=== PATIENT | female | born 1970 | race Caucasian/White ===

== ENCOUNTER 2022-05-31 19:50 | Emergency (ER) | payer OTHER, SELFPAY ==
[2022-05-31 20:05] VITALS: BP 160/86; PULSE 105; RESP 18; TEMP 36.3; O2SAT 99
--- NOTE | 2022-05-31 21:21 | ED.FEMALEGU ---
HPI - Female Genitourinary General Stated complaint: Possible UTI Time Seen by Provider: 05/31/22 21:11 Source: patient Mode of arrival: ambulatory Limitations: no limitations History of Present Illness HPI Narrative: Patient presents today complaining of possible UTI. Reports dysuria for several days, but states it had resolved a few days ago. She also reports some redness to her groin and some malodorous vaginal discharge x2 weeks. Denies concerns for STIs, but would like tested for them with her urine sample. Related Data Allergies Allergy/AdvReac Type Severity Reaction Status Date / Time No Known Allergies Allergy Verified 05/31/22 20:16 Review of Systems Review of Systems: CONSTITUTIONAL: Denies body aches, fever, chills, or sweats. EYES: Denies visual changes, redness, or discharge. ENT: Denies rhinorrhea, congestion, sore throat, or otalgia. CARDIOVASCULAR: Denies chest pain, palpitations, or edema. RESPIRATORY: Denies cough or dyspnea. GASTROINTESTINAL: Denies abdominal pain, nausea, vomiting, or diarrhea. GENITOURINARY: + Malodorous vaginal discharge, groin redness SKIN: Denies rash, itching, or wounds. MUSCULOSKELETAL: Denies back pain, joint pain, or myalgia. NEUROLOGIC: Denies headache, numbness, tingling, or weakness. PSYCH: Denies depression or anxiety. PMFSH Comments At time of signature, I have reviewed and agree with nursing past medical, surgical, social and family history unless otherwise noted. Please see nursing chart for further information. There is no relevant family history pertinent to the presenting complaint Exam Narrative: GENERAL: Well-appearing, well-nourished, and in no acute distress. HEAD: Normocephalic, atraumatic. EYES: EOMI. No redness or drainage. Conjunctivae normal. ENT: Mucous membranes pink and moist. NECK: Normal AROM. CHEST: No respiratory distress. Clear to auscultation. HEART: Regular rate and rhythm. No murmur appreciated. Normal peripheral pulses. ABDOMEN: Soft, nontender, nondistended, normal active bowel sounds.-CVAT : deferred. MUSCULOSKELETAL: No bony tenderness. EXTREMITIES: Normal range of motion. No edema. SKIN: Warm, dry, no rash. Capillary refill normal. Normal skin turgor. NEURO: No focal deficits. Alert and oriented x3. Gait steady. PSYCH: Normal affect. No signs of depression or anxiety. Course Course Level of Care: Express Care Visit Vital Signs Vital signs: Vital Signs Temperature 97.4 F L 05/31/22 20:05 Pulse Rate 105 H 05/31/22 20:05 Respiratory Rate 18 05/31/22 20:05 Blood Pressure 160/86 H 05/31/22 20:05 Pulse Oximetry 99 05/31/22 20:05 Oxygen Delivery Room Air 05/31/22 20:05 Temperature 97.4 F L 05/31/22 20:05 Pulse Rate 105 H 05/31/22 20:05 Respiratory Rate 18 05/31/22 20:05 Blood Pressure 160/86 H 05/31/22 20:05 Pulse Oximetry 99 05/31/22 20:05 Oxygen Delivery Room Air 05/31/22 20:05 Reviewed. Pt has been instructed to follow up with his PCP regarding his elevated blood pressure today. MDM - Female Genitourinary MDM Narrative Medical decision making narrative: Patient would like her urine sample sent for her sexually transmitted infections, however, would not like to be treated today with antibiotics. We will treat her for her UTI with Keflex. Differential Diagnosis Differential diagnosis: Likely urinary tract infection, bacterial vaginosis, trichomoniasis and other (Gonorrhea, chlamydia, yeast) Lab Data Attestation: I reviewed the patient's lab results. Labs: Lab Results 05/31/22 05/31/22 Range/Units 20:11 20:11 C.trachomatis RNA (TMA) Pending N.gonorrhoeae RNA (TMA) Pending T. vaginalis Amp RNA Pending Urine Glucose Negative Reference Range: Negative Urine Bilirubin Negative Reference Range: Negative Urine Ketone
== END 2022-05-31 21:30 | disposition home or self-care (01) ==
PROVIDERS: Emergency Provider Nurse Practitioner
DX: N39.0 Urinary tract infection, site not specified (principal); N89.8 Other specified noninflammatory disorders of vagina
CPT/HCPCS: 81003; 87077; 87086; 87088; 87186; 87491; 87591; 87661; 99214; G0463